=== PATIENT | female | born 1985 | race Caucasian/White ===

== ENCOUNTER 2016-12-10 12:27 | Emergency (ER) | payer BC ==
[~2016-12-10] VITALS: Ht 162.6 cm; Wt 59.0 kg
--- NOTE | 2016-12-10 12:30 | NUR ---
PORTABLE XRAYS DONE AT BEDSIDE. PT TOLERATING IT WELL
--- NOTE | 2016-12-10 12:30 | NUR ---
DR JOHN AT BEDSIDE FOR EVALUATION
[2016-12-10 12:35] VITALS: BP 161/113; PULSE 71; RESP 18; TEMP 98.5; O2SAT 97
--- NOTE | 2016-12-10 12:39 | NUR ---
DR JOHN AT BEDSIDE ATTEMPTING TO MANIPULATE RIGHT SHOULDER, PT TOLERATING IT WELL. UNABLE TO REDUCE SHOULDER
--- NOTE | 2016-12-10 12:40 | NUR ---
PT STATES THAT SHE WAS PICKING UP A LARGE COMPUTER BAG AND FELT SHOULDER "POP". +DEFORMITY. PT STATES THAT SHE HAS DISLOCATED HER SHOULDER OVER 50 TIMES. FEELS THE SAME
[2016-12-10] MEDS ORDERED: NACL 0.9% 1,000 ML IV ONE (12:45)
[2016-12-10] MEDS ORDERED: ONDANSETRON HCL 4 MG/2 ML VIAL IVP ONE (12:45)
[2016-12-10] MEDS ORDERED: fentaNYL CITRATE/PF 100 MCG/2 ML AMP IVP ONE (12:45)
[2016-12-10] MEDS ORDERED: DEXAMETHASONE SOD PHOSPHATE 10 MG/ML VIAL IVP ONE (12:45)
--- NOTE | 2016-12-10 13:01 | NUR ---
DR JOHN AND LEROY RUST ABLE TO MANIPULATE RIGHT SHOULDER, SUCCESSFUL REDUCTION. PT TOLERATED IT WELL. WILL MONITOR
[2016-12-10] MEDS ORDERED: ONDANSETRON HCL 4 MG/2 ML VIAL ONE (13:02)
[2016-12-10] MEDS ORDERED: KETOROLAC TROMETHAMINE 30 MG VIAL IVP ONE (13:15)
[2016-12-10 13:54] VITALS: BP 116/72; PULSE 77; RESP 19; TEMP 98.4; O2SAT 99
--- NOTE | 2016-12-10 13:56 | NUR ---
Patient given written and verbal discharge instructions and verbalizes understanding. ER MD discussed with patient the results and treatment provided. Given copies of tests performed in ER. Patient in stable condition. ID arm band removed. IV catheter removed intact and dressing applied, no active bleeding. Rx of none given. Patient educated on pain management and to follow up with PMD. Pain Scale 2/10. Opportunity for questions provided and answered.
== END 2016-12-10 13:54 | disposition home or self-care (01) ==
LOC: SED 12:27
DX: S43.004A Unspecified dislocation of right shoulder joint, initial encounter (principal); R03.0 Elevated blood-pressure reading, without diagnosis of hypertension; X58.XXXA Exposure to other specified factors, initial encounter; Y93.89 Activity, other specified; Y99.8 Other external cause status; Y92.89 Other specified places as the place of occurrence of the external cause
CPT/HCPCS: 23650; 73030; 99284; J1885; J2405; J1100; J3010